=== PATIENT | male | born 1955 | race Caucasian/White ===

== ENCOUNTER → 2018-08-22 | Outpatient (CLI) | payer OTHER ==
[~2018-08-22] VITALS: Ht 177.8 cm; Wt 91.6 kg
[~2018-08-22] MED LIST: AMLODIPINE BESY10 MG PO; JARDIANCE10 MG PO; LIPITOR40 MG PO; LOSARTAN-HCTZ1 EAC1 PO; METFORMIN HCL500 MG PO
[2018-08-22 11:06] VITALS: BP 164/77
--- NOTE | 2018-08-22 16:54 | EKG ---
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 : 1955 Requested By: Yousif Mcnamara Order Number: [id number] MD: Shoaib Lovett Measurements Intervals [place] Rate: 72 P: 40 [place]: 170 QRS: 4 QRSD: 100 T: 34 QT: 412 QTc: 451 Interpretive Statements Sinus rhythm Normal tracing Compared to ECG 03/14/1996 14:28:00 Sinus tachycardia no longer present Electronically Signed On 08-22-2018 16:54:15 CDT by Shoaib Lovett [email or web address] ��������������������������������������������� <ELECTRONICALLY SIGNED> ���������������������������������������� By: Shoaib Lovett MD, [facility] ��������������������������������������������� 08/22/18 1654 1115 15 Shoaib Lovett MD, FACC /EPI
--- NOTE | 2018-08-22 18:14 | CATHLAB ---
[facility] [address] [place] [address] INVASIVE PROCEDURE REPORT Name: PERLA SQUIRES Room #: [facility] [id number] ������������� Admission: 08/22/18 ������������� Attend Phys: Yousif Martinez Discharge: ��� ������������� ��� Date of : 55 Date of Service: 08/22/18 1814 �� Report #: [id number] �������� ��������������������������������������������[id number] THIS REPORT FOR: //name// APPROVED REPORT Study performed: 08/22/2018 13:50:00 Patient Details The patient is a 62 year-old male Event Personnel Yousif Mcnamara Scooping Machine Tender, Stiven De León RN, Shaheen Ortega RTR Scrub, Xander Low Monitor Procedures Performed Left Heart Catheterization,selective left and right coronary angiography, measurement of left ventricular pressures, supervision of conscious sedation Indication Positive stress test, Chest pain Procedure Narrative The Right Groin^ was infiltrated with 1% Lidocaine subcutaneous anesthesia. A PINNACLE 4FR Sheath #[id number] sheath was inserted into the RFA^. Coronary angiography was performed using coronary diagnostic catheters. The right coronary system was accessed and visualized with a JL4 catheter. The left coronary system was accessed and visualized with a JR4 catheter. The left ventricle was accessed and visualized with a PIGTAIL catheter. Hemostasis was obtained with manual pressure following sheath removal without any complications. The patient tolerated the procedure well and there were no complications associated with the procedure. There was no hematoma. Intraoperative Conscious Sedation Sedation start time: 1418 Case end Time: 1438 Versed 3 mg Fluoro Time: 2.00 minutes Dose: DAP 3012.00 cGycm2 423 mGy Contrast Type and Amount: Omnipaque 65 ml Coronary Angiography [facility] [address] [place] [address] INVASIVE PROCEDURE REPORT Name: PERLA SQUIRES Room #: REG [facility]#: [id number] ������������� Admission: 08/22/18 ������������� Attend Phys: Yousif Martinez Discharge: ��� ������������� ��� Date of : 55 Date of Service: 08/22/18 1814 �� Report #: [id number] �������� ��������������������������������������������[id number] The patient's coronary anatomy is right dominant. Diagnostic Cath Left Main normal origin and caliber bifurcates into left anterior descending and left circumflex arteries. no significant obstructive lesions noted. LAD large caliber rapidly tapering type II vessel coarsing in anterior interventricular sulcus giving rise to septal and diagonal branches free of significant obstructive lesions Diagonal 1 small caliber vessel without significant disease Circumflex large caliber vessel proceeding in AV grove giving rise to marginal one and two free of significant lesions OM1 large caliber lateral wall marginal branch free of high grade lesions OM2 diminuitive posterior wall marginal without stenosis Right Coronary large caliber dominant vessel free of significant lesions. gives rise to two posterior wall branches and posterior descending artery all free of siginifcant lesions R PDA moderate caliber long vessel free of obstructive lesions Left Ventriculography Left Ventriculography was not performed. Conclusion 1. essentially normal coronary arteries 2. normal hemodynamics Recommendations Cardiac Risk Reduction Program ��������������������������������������������� <ELECTRONICALLY SIGNED> ���������������������������������������� By: Yousif Mcnamara MD ��������������������������������������������� 08/22/181813 13 13 Yousif Mcnamara MD /INF
== END | disposition home or self-care (01) ==
LOC: CATH 07:33
DX: R07.9 Chest pain, unspecified (principal); I10 Essential (primary) hypertension; E11.9 Type 2 diabetes mellitus without complications; J45.909 Unspecified asthma, uncomplicated; E78.5 Hyperlipidemia, unspecified; K21.9 Gastro-esophageal reflux disease without esophagitis; Z79.899 Other long term (current) drug therapy; Z98.890 Other specified postprocedural states